=== PATIENT | male | born 1930 | race Caucasian/White ===

== ENCOUNTER 2017-05-07 12:08 | Inpatient (IN) | payer OTHER ==
[~2017-05-07] VITALS: Ht 170.2 cm; Wt 60.3 kg
--- NOTE | ~2017-05-07 | PLAN ---
[facility] [place] [address] REHAB UNIT PLAN OF CARE Name: KELLI AMIN Room #: 512-P [facility] IN M.R.#: [id number] Admission: 05/07/17 Attend Phys: Say Parada MD Discharge: Date of : 30 Report #: [id number] THIS REPORT FOR: //name// CC: Say Macias DATE OF SERVICE: 05/10/2017 The patient is seen back today in followup. He does not like his thickened liquid diet. No other specific complaints. Last recorded temperature is 98.8, pulse 65, respirations are 18, blood pressure 132/52. He is alert. No focal neurologic changes from last week. Transfers are min assist with gait min assist 250 feet with front wheeled walker. In occupational therapy, upper body dressing is supervision and lower body dressing is supervision. He does have moderate comprehensive deficits. He is on a regular diet with nectar thickened liquids. ASSESSMENT: 1. 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 2. Severe aortic valve stenosis, status post diagnostic cardiac catheterization to evaluate for TAVR procedure. 3. Mixed aphasia, expressive greater than receptive. 4. Severe pharyngeal dysphagia on thickened liquids. 5. Gait and activities, ADL dysfunction with communication dysfunction. 6. Dyslipidemia. 7. Pulmonary hypertension. 8. Chronic kidney disease. 9. Congestive heart failure. PLAN: The overall plan of care is based on the preadmission screen, post-admission physician evaluation, and information garnered from therapy assessments. 1. Estimated length of stay is probably at least 10 days to 2 weeks and likely longer pending progress. 2. Medical prognosis is reasonably good. 3. Anticipated interventions include the interdisciplinary acute inpatient rehabilitation program with a goal of maximizing the patient's functional independence. We will have PT, OT, speech, rehab nursing assisting regarding medication management, skin care prophylaxis, bowel and bladder issues, and nursing education. We will have the packaging sales consultant physicians involved. 4. Anticipated functional outcomes would be for the patient to become modified independent with transfers, mobility, ADLs and to improve as far as his swallowing and communication so that he can return back home. 5. Discharge destination would be back home with his in their house. 6. Expected therapy by discipline includes PT, OT, and speech 1 hour per day [address] [address] REHAB UNIT PLAN OF CARE Name: AMINKELLI L Room #: 512-P [facility] IN [facility]#: [id number] Admission: 05/07/17 Attend Phys: Say Parada MD Discharge: Date of : 30 Report #: [id number] each five days a week throughout the duration of the acute inpatient rehabilitation stay. <ELECTRONICALLY SIGNED> By: Say Parada MD 05/11/17 1109 [id number] Say Parada MD /PMT
--- NOTE | ~2017-05-07 | HC ---
[facility] [place] [address] CONSULTATION Name: KELLI AMIN Room #: 512-P [facility] IN M.R.#: [id number] Admission: 05/07/17 Attend Phys: Say Parada MD Discharge: Date of : 30 Report #: [id number] THIS REPORT FOR: //name// CC: Say Macias DATE OF SERVICE: 05/10/2017 NEUROBEHAVIORAL STATUS EXAM: ATTENDING PHYSICIAN: Say Parada MD. OVERNIGHT CAREGIVER: Emile Damian, PhD. CLINICAL PRESENTATION: The patient is an 86-year-old male admitted to the [facility] rehabilitation unit for a comprehensive inpatient rehabilitation program to improve functional mobility, activities of daily living and self-care and mental status secondary to deficits from a cerebrovascular accident. The patient is reported to have been in his usual state of health when he was undergoing a cardiac catheterization on 04/30/2017. The patient became unresponsive and the staff noted right-sided weakness. A code stroke was called at [facility] and radiographic evaluation revealed an acute left middle cerebral artery occlusion. The patient was not seen as a TPA candidate due to cardiac catheterization and he underwent a successful middle cerebral artery thrombectomy. ADDITIONAL DIAGNOSES: Severe aortic valve stenosis status post diagnostic cardiac catheterization, mixed aphasia expressive greater than receptive, severe pharyngeal dysphagia, gait and activities of daily living deficits, dyslipidemia, pulmonary hypertension, chronic kidney disease and congestive heart failure. A complete description of his medical condition and history along with medications can be found in his medical record. Neuropsychological consultation was requested to provide assistance in the assessment of cognitive and emotional status and to provide recommendations and services. Prior to this most recent admission, the patient was living with his in their home. He had 4 children. The patient is a high school graduate. 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 There is reported history of treatment for anxiety/depression or alcohol/drug abuse. TECHNIQUES UTILIZED: Clinical interview, review of medical records, staff consultation and behavioral observation, and subtests and mini mental status exam 2 standard version. EXAMINATION FINDINGS: The patient was alert and cooperative with the [facility] [address] [place] [address] CONSULTATION Name: KELLI AMIN Dalia Room #: 512-P [facility] IN M.R.#: [id number] Admission: 05/07/17 Attend Phys: Say Parada MD Discharge: Date of : 30 Report #: [id number] assessment. He presents with an expressive aphasia which interferes with communication. However, auditory comprehension appears much better maintained. His symptoms include sleep disturbance, impairment with memory, word finding, anxiety and depression. His performance on a mental status exam suggests well-maintained orientation to time and place. Greatest deficits will be in verbal fluency, which may have an impact on thought organization, planning and problem solving. He describes his appetite as good. Difficulty with sleep is reported. DIAGNOSTIC IMPRESSION: Neurocognitive disorder due to vascular disease, without behavior disorder -- extent to be determined with an expressive aphasia. Comprehension much better maintained than expression Adjustment disorder with anxiety and depressed mood. RECOMMENDATIONS: The patient will benefit from the use of multiple choice options when engaged in decision making. Intermittent assistance with verbal expression will be of benefit. However, the patient should be encouraged to engage in verbal expression as often as possible. He does not appear to have an anomia, although naming will be inconsistent. Consider use of an antidepressant as his condition stabilizes. A followup neuropsych assessment may be of value to assist in determining the extent of his deficits in cognition. I was unable to get collateral background at the time of this dictation. Further discussion with family is indicated to clarify his previous level of functioning and their availability to provide additional assistance. Thank you very much for allowing me to provide the consultation on this patient. <ELECTRONICALLY SIGNED> By: Emile Damian, PhD 05/16/17 1229 [id number] Emile Damian, PhD /nt
--- NOTE | ~2017-05-07 | H ---
[facility] [place] [address] HISTORY AND PHYSICAL Name: KELLI AMIN Dalia Room #: 512-P [facility] IN .R.#: [id number] Admission: 05/07/17 Attend Phys: Say Parada MD Discharge: 05/18/17 Date of : 30 Report #: [id number] THIS REPORT FOR: //name// CC: Say Macias DATE OF SERVICE: 05/07/2017 HISTORY AND PHYSICAL AND POST-ADMISSION AND PHYSICIAN EVALUATION HISTORY OF PRESENT ILLNESS: The patient is an 86-year-old left-handed white male with a history of chronic kidney disease, CHF, coronary artery disease status post CABG, severe aortic stenosis, and carotid stenosis status post endarterectomy. He was in his usual state of health and he was undergoing cardiac catheterization on 04/30/2017 as a procedure for TAVR evaluation. He became unresponsive and staff noted he had some right-sided weakness. Code stroke was called at [facility] and radiographic evaluation revealed an acute left MCA M1 segment occlusion. He was not a TPA candidate due to the cardiac catheterization and he underwent a successful middle cerebral artery M1 thrombectomy. Neurology was consulted. He was placed on aspirin and to continue his statin therapy. He initially failed a swallow and an NG tube was placed. He had some pneumonia with bilateral patchy heterogeneous opacities, most significant in the right upper lung zone. Repeat swallow was improved and he was started on a regular diet with nectar-thickened liquids. Evaluation revealed an apparent small rectus abdominis hematoma. He was felt to be ready and has been transferred now to [facility] to the inpatient rehabilitation arevalo. PAST MEDICAL HISTORY: Includes chronic kidney disease, CHF, coronary artery disease with coronary artery bypass grafting, severe aortic stenosis, and carotid stenosis status post endarterectomy. He has a history of pulmonary hypertension and was on home oxygen 4 liters nasal cannula. MEDICATIONS: Please see the full medication listing. CODE STATUS: He is a full code. SOCIAL HISTORY: Lives in a house with his , 3 steps in and then 18 steps to the upstairs bedroom. There is no bedroom on the ground floor. He was premorbidly independent ambulatory without gait aids, although he had his oxygen that he used for his pulmonary hypertension. Both he and his are retired. They do have involved children. He did not utilize any adaptive device for gait premorbidly. REVIEW OF SYSTEMS: Did not offer any current complaints of chest pain, shortness of breath, or abdominal discomfort. He does not like the [facility] [address] [place] [address] HISTORY AND PHYSICAL Name: KELLI AMIN Room #: 512-P [facility] IN [facility].#: [id number] Admission: 05/07/17 Attend Phys: Say Parada MD Discharge: 05/18/17 Date of : 30 Report #: [id number] liquid diet. Did not offer any complaints as far as extremity pain complaints. PHYSICAL EXAMINATION: GENERAL: He is a pleasant 86-year-old slender white male, in no obvious distress. VITAL SIGNS: Temperature 36.7, pulse 72, respirations 22, and blood pressure 124/46. HEENT: Facies were symmetric. CHEST: Sounded clear to auscultation. CARDIAC: Regular rate and rhythm. ABDOMEN: Bowel sounds positive, nontender. GENITOURINARY: Deferred. RECTAL: Deferred. NEUROLOGIC: He is alert, bearded white male on nasal prong O2. The notes he is on 4 liters, but has to go up to 6 liters with activity. Facies appeared to be symmetric. He could tell me the place and could tell me the year. He had definite difficulty with phrase repetition with an expressive aphasia. He is able to follow basic 1-step commands without difficulty. No obvious visual field neglect to confrontation. He has functional range of motion of both upper extremities. Strength is a grade 4+/5, both upper extremities and 4-/5 both lower extremities. Sensation, some difficulty with extinction with bilateral simultaneous stimulation. DTRs were 1+. There was no clonus. Negative Nath's. Toes are downgoing. He has been min assist with transfers. Gait has been min assist without a device short distances with decreased balance. ASSESSMENT: 1. 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 2. Severe aortic valve stenosis status post diagnostic cardiac catheterization to evaluate for TAVR procedure. 3. Mixed aphasia, expressive greater than receptive. 4. Severe pharyngeal dysphagia. He is on thickened liquids. 5. Gait and activities of daily living dysfunction with communication dysfunction. 6. Dyslipidemia. 7. Pulmonary hypertension. He was on nasal prong O2 of 4 liters premorbidly. 8. Chronic kidney disease. 9. Congestive heart failure. PLAN: The patient is admitted for acute in-hospital inpatient rehabilitation. From a post-admission physician evaluation perspective, there are no relevant changes since the preadmission screening. Please see the above review of prior and current medical and functional conditions and comorbidities. Please see the patient's prior and current functional status. As far as risk of complications, he does have multiple medical comorbidities as noted above. Initial plan of care involves the interdisciplinary acute inpatient rehabilitation program with [address] [address] HISTORY AND PHYSICAL Name: KELLI AMIN Room #: 512-P [facility] IN .R.#: [id number] Admission: 05/07/17 Attend Phys: Say Parada MD Discharge: 05/18/17 Date of : 30 Report #: [id number] the goal of maximizing the patient's functional independence so that he can hopefully return back to his home setting. Prognosis is reasonably good with estimated length of stay probably at least 10 days to 2 weeks and likely longer. Potential barriers would include his multiple medical comorbidities and decreased functional status. <ELECTRONICALLY SIGNED> By: Say Parada MD 06/04/17 1408 [id number] 1622 Say Parada MD /nt
[2017-05-07] MEDS ORDERED: AUGMENTIN 500-1 EACH PO (13:20)
[2017-05-07] MEDS ORDERED: COLACE100 MG PO (13:21)
[2017-05-07] MEDS ORDERED: DUONEB 2.5-0.5 M3 ML INH (13:24)
[2017-05-07] MEDS ORDERED: LASIX 40 MG TAB40 M2 PO (13:25)
[2017-05-07] MEDS ORDERED: TOPROL XL25 MG PO (13:26)
[2017-05-07] MEDS ORDERED: ASPIRIN81 M2 PO (13:27)
[2017-05-07] MEDS ORDERED: NORVASC5 MG PO (13:27)
[2017-05-07] MEDS ORDERED: ATORVASTATIN CA40 MG PO (13:28)
[2017-05-07] MEDS ORDERED: MEN'S ONE DAIL1 EAC1 PO (13:29)
[2017-05-07] MEDS ORDERED: TRAVATAN Z2.5 ML OPHTHALMIC (13:30)
[2017-05-07 14:45] VITALS: BP 124/46
[2017-05-07 19:59] VITALS: BP 126/43
[2017-05-08 05:43] LABS: HEMATOCRIT 23.5 % (42.0-52.0); HEMOGLOBIN 7.6 gm/dL (14.0-18.0); MCH 33.9 pg (26.0-34.0); MCHC 32.4 g/dL (28.0-37.0); MCV 104.6 fL (80.0-100.0); RBC 2.24 mil/uL (4.50-6.00); WBC 11.3 thou/uL (4.0-11.0)
[2017-05-08 06:00] LABS: CALCIUM 8.3 mg/dL (8.5-10.1); CREATININE 2.7 mg/dL (0.7-1.3); POTASSIUM 3.6 mmol/L (3.5-5.1)
[2017-05-08 06:56] VITALS: BP 127/57
[2017-05-08 21:02] VITALS: BP 136/62
[2017-05-09 08:00] VITALS: BP 113/46
[2017-05-09 20:00] VITALS: BP 132/52
[2017-05-10 06:35] LABS: HEMATOCRIT 23.9 % (42.0-52.0); MCH 34.7 pg (26.0-34.0); MCHC 33.2 g/dL (28.0-37.0); MCV 104.5 fL (80.0-100.0); RBC 2.29 mil/uL (4.50-6.00); RDW 14.9 % (10.5-14.5); WBC 9.8 thou/uL (4.0-11.0)
[2017-05-10 06:45] LABS: CREATININE 2.5 mg/dL (0.7-1.3); POTASSIUM 3.4 mmol/L (3.5-5.1)
[2017-05-10 08:00] VITALS: BP 129/60
[2017-05-10 20:00] VITALS: BP 122/44
[2017-05-11 08:00] VITALS: BP 137/59
[2017-05-11 21:51] VITALS: BP 112/43
[2017-05-12 06:46] VITALS: BP 115/34
[2017-05-12 14:28] LABS: ABSOLUTE NEUTROPHILS 6.8 thou/uL (1.4-8.2); BASOPHILS 0.4 % (0.0-2.0); EOSINOPHILS 5.2 % (0.0-3.0); HEMATOCRIT 24.1 % (42.0-52.0); HEMOGLOBIN 7.9 gm/dL (14.0-18.0); LYMPHOCYTES 13.4 % (24.0-44.0); MCH 34.5 pg (26.0-34.0); MCHC 32.7 g/dL (28.0-37.0); MCV 105.3 fL (80.0-100.0); MONOCYTES 8.3 % (1.0-8.0); PLATELET COUNT 197 thou/uL (150-400); POLYS 72.7 % (36.0-66.0); RBC 2.29 mil/uL (4.50-6.00); RDW 15.4 % (10.5-14.5); WBC 9.3 thou/uL (4.0-11.0)
[2017-05-12 14:38] LABS: CALCIUM 8.3 mg/dL (8.5-10.1); CREATININE 2.7 mg/dL (0.7-1.3); POTASSIUM 4.5 mmol/L (3.5-5.1)
[2017-05-12 19:21] VITALS: BP 120/51
[2017-05-13 08:30] VITALS: BP 125/50
[2017-05-13 19:30] VITALS: BP 124/48
[2017-05-14 07:59] VITALS: BP 107/50
[2017-05-14 20:18] VITALS: BP 119/52
[2017-05-15 08:15] VITALS: BP 112/40
[2017-05-15 20:00] VITALS: BP 118/32
[2017-05-16 10:17] VITALS: BP 107/55
[2017-05-16 20:14] VITALS: BP 131/36
[2017-05-17 07:30] VITALS: BP 127/59
[2017-05-17 14:41] LABS: ABSOLUTE NEUTROPHILS 6.4 thou/uL (1.4-8.2); BASOPHILS 1.2 % (0.0-2.0); EOSINOPHILS 4.7 % (0.0-3.0); HEMATOCRIT 24.7 % (42.0-52.0); HEMOGLOBIN 8.2 gm/dL (14.0-18.0); LYMPHOCYTES 13.8 % (24.0-44.0); MCH 34.8 pg (26.0-34.0); MCHC 33.1 g/dL (28.0-37.0); MCV 105.2 fL (80.0-100.0); MONOCYTES 9.7 % (1.0-8.0); PLATELET COUNT 272 thou/uL (150-400); POLYS 70.6 % (36.0-66.0); RBC 2.35 mil/uL (4.50-6.00); RDW 15.1 % (10.5-14.5)
[2017-05-17 14:54] LABS: CALCIUM 8.7 mg/dL (8.5-10.1); CREATININE 2.8 mg/dL (0.7-1.3); POTASSIUM 4.4 mmol/L (3.5-5.1)
[2017-05-17 15:00] LABS: ALBUMIN 2.6 g/dL (3.4-5.0); MAGNESIUM 1.9 mg/dL (1.8-2.4); TOTAL BILIRUBIN 0.4 mg/dL (<0.1-1.0); TOTAL PROTEIN 6.6 g/dL (6.4-8.2)
[2017-05-17 17:32] VITALS: BP 127/59
[2017-05-17 19:45] VITALS: BP 124/43
[2017-05-18] MEDS ORDERED: NYAMYC15 GM TOP (07:59)
[2017-05-18 08:00] VITALS: BP 119/40
[2017-05-18 08:23] VITALS: BP 127/59
[2017-05-18 10:49] VITALS: BP 127/59
== END 2017-05-18 13:30 | disposition home health service (06) | DRG 64 ==
LOC: ENTRNSPT 05-18 12:37 → EDTRNSPTSTS 05-18 12:40
PROVIDERS: Hospitalist; Internal Medicine; Physical Medicine & Rehabilitation
DX: I63.9 Cerebral infarction, unspecified (principal); J69.0 Pneumonitis due to inhalation of food and vomit; I13.0 Hypertensive heart and chronic kidney disease with heart failure and stage 1 through stage 4 chronic kidney disease, or unspecified chronic kidney disease; J96.11 Chronic respiratory failure with hypoxia; I35.0 Nonrheumatic aortic (valve) stenosis; R47.01 Aphasia; R13.13 Dysphagia, pharyngeal phase; E78.5 Hyperlipidemia, unspecified; N18.9 Chronic kidney disease, unspecified; I50.9 Heart failure, unspecified; I27.20 Pulmonary hypertension, unspecified; I25.10 Atherosclerotic heart disease of native coronary artery without angina pectoris; Z95.1 Presence of aortocoronary bypass graft; Z99.81 Dependence on supplemental oxygen; R41.9 Unspecified symptoms and signs involving cognitive functions and awareness; F43.23 Adjustment disorder with mixed anxiety and depressed mood; Z23 Encounter for immunization
CPT/HCPCS: 10112